=== PATIENT | male | born 1965 | race Caucasian/White ===

== ENCOUNTER 2017-02-01 06:06 | Day surgery (SDC) | payer OTHER ==
[~2017-02-01 06:06] MED LIST: Lactated Ringers 1,000 ML IV SCH
[2017-02-01] MEDS ORDERED: Ketamine HCl 50 MG/ML IJ ONE (06:07)
[2017-02-01] MEDS ORDERED: DIPRIVAN 200 MG/20 ML IV ONE (06:07)
[2017-02-01 08:18] VITALS: O2SAT 99
[2017-02-01 08:42] VITALS: BP 128/72; PULSE 77
--- NOTE | 2017-02-01 10:06 | OP ---
SURGERY DATE/TIME: 02/01/2017 0655 PREOPERATIVE DIAGNOSIS: Hepatocellular carcinoma of the liver. Search for possible primary site. POSTOPERATIVE DIAGNOSIS: Hepatocellular carcinoma of the liver. Search for possible primary site. PROCEDURES: 1) EGD. 2) Colonoscopy. SURGEON: Dr. Cordova. ANESTHESIA: MAC. Medications given by anesthesia department. HISTORY: The patient is a 51 year-old male with history of hepatitis C and alcoholism. The patient has been evaluated by physicians up in [place] and has received treatments with feeds into the two sites into his liver that they have found thus far. The patient is now here for evaluation for possible primary source of cancer. The patient was described the risks of the procedure including the risk of perforation, phlebitis, untoward reaction to medication, bleeding and missed lesions. The patient verbalized his understanding and desired to have the procedure performed. DESCRIPTION OF PROCEDURE: The patient was given the medications by the anesthesia department. The patient was placed in the left lateral decubitus position. A bite block was placed and the flexible Olympus gastroscope was used to intubate the oropharynx. The esophagus was entered with ease and appeared to be normal throughout is length. The stomach was entered where normal gastric rugal folds were seen and these distended nicely with insufflation of air. The scope was passed along the greater curvature of the stomach to the pylorus. The duodenum was inspected. The scope was withdrawn towards the stomach. Again, a retroflex view was obtained of the lesser curvature, fundus and cardia region of the stomach and these appeared to be normal. The scope was then removed from the patient who tolerated the procedure well. Next, a digital rectal examination was performed and revealed normal anal sphincter tone and no masses and normal prostate. The flexible Olympus pediatric colonoscope was used to intubate the rectum. A view of the colon was developed sequentially to the cecum. Upon insertion and withdrawal, including a retroflex view in the rectum, no mucosal lesions were encountered. The scope was removed from the patient who tolerated the procedure well and was sent back to OP recovery in good condition. The prep was noted to be fair.
== END 2017-02-01 08:35 | disposition home or self-care (01) ==
LOC: SDC 06:06
PROVIDERS: ATTEND Family Medicine
PROC: 0DJ08ZZ Inspection of Upper Intestinal Tract, Via Natural or Artificial Opening Endoscopic (ICD-10-PCS; principal; 2017-02-01)
PROC: 0DJD8ZZ Inspection of Lower Intestinal Tract, Via Natural or Artificial Opening Endoscopic (ICD-10-PCS; 2017-02-01)
DX: C22.0 Liver cell carcinoma (principal); F10.20 Alcohol dependence, uncomplicated; E11.9 Type 2 diabetes mellitus without complications; Z79.4 Long term (current) use of insulin; Z12.11 Encounter for screening for malignant neoplasm of colon
CPT/HCPCS: 00740; 00810; J2704

== ENCOUNTER 2017-03-01 21:07 | Emergency (ER) | payer OTHER ==
[2017-03-01] MEDS ORDERED: SUBLIMAZE 100 MCG/2 ML IV ONE (22:25)
[2017-03-01] MEDS ORDERED: Vistaril 50 MG/ML IM ONE ×2 (22:25→22:33)
[2017-03-01] MEDS ORDERED: Sodium Chloride 0.9% 1000 ML 1,000 ML IV SCH (22:30)
--- NOTE | 2017-03-01 22:30 | ERPHSYRPT ---
- History of Present Illness Time Seen by Provider: 03/01/17 22:16 Source: patient, family () Patient Subjective Stated Complaint: Pt reports feeling sick at home, with chills x 2 days. Reports feeling like he is unable to sleep because his brain "won't shut off". Pt reports pain in the right leg. Pt also reports tingling and sharp needle pains in the hands. Denies fever at home. Reports is concerned because he has liver cancer and has chemo beads in. Triage Nursing Assessment: Pt alert, oriented, answers all questions appropriately. Skin pink, warm, dry. resps non-labored. Pt ambulatory to tx room , steady gait noted. Physician History: CCl chills Hx: 51 y/o patient of [facility] oncology and Dr Rivera. He has hx of liver cancer s/ p bead chemo implant one month ago. He has had right thigh pain since this vascular procedure. He has chills for 2 days. No fever. Tonite after work he could not shut his mind down to rest, felt nervous, tingling in his fingers, pain in hands and right thigh. No swelling of the leg. No abd pain or vomiting. No diarrhea. No headache. No injury. [place] heart racing while he had his ear plugs in trying to sleep. Severity: moderate Allergies/Adverse Reactions: No Known Drug Allergies Allergy (Verified 03/01/17 22:24) Home Medications: Glyburide,Micronized [Glynase] 5 mg PO BID 06/01/13 [History] Metformin HCl 500 mg [Glucophage 500 MG] 1,000 mg PO BID 06/01/13 [History ] Amlodipine Besylate 10 mg [Norvasc 10 MG] 10 mg PO DAILY 01/28/17 [History] Hydrochlorothiazide 50 mg PO DAILY 01/28/17 [History] Ledipasvir/Sofosbuvir [Harvoni 90-400 mg Tablet] 1 each PO DAILY 01/28/17 [ History] Lisinopril [Zestril] 40 mg PO DAILY 01/28/17 [History] Potassium Chloride 10 Meq Tab* [Klor Con 10 MEQ] 10 meq PO DAILY 01/28/17 [ History] Sitagliptin Phosphate [Januvia] 100 mg PO DAILY 01/28/17 [History] Verapamil HCl [Verapamil Sr] 120 mg PO DAILY 01/28/17 [History] Hx Tetanus, Diphtheria Vaccination/Date Given: Yes Hx Influenza Vaccination/Date Given: No Hx Pneumococcal Vaccination/Date Given: No Immunizations Up to Date: Yes - Review of Systems Constitutional: Chills, Malaise, No Fever Eyes: No Vision Changes Ears, Nose, & Throat: No Symptoms Respiratory: No Cough, No Dyspnea Cardiac: No Chest Pain, No Syncope Abdominal/Gastrointestinal: No Abdominal Pain, No Nausea, No Vomiting, No Diarrhea Genitourinary Symptoms: No Dysuria Musculoskeletal: Joint Pain (hx RA), Myalgias, No Injury Skin: No Rash Neurological: Parasthesia (hands and finger tips), No Focal Weakness, No Headache All Other Systems: Reviewed and Negative - Past Medical History Pertinent Past Medical History: Yes Neurological History: No Pertinent History ENT History: No Pertinent History Cardiac History: Hypertension Respiratory History: No Pertinent History Endocrine Medical History: Diabetes Type II Musculoskeletal History: Degenerative Disk Disease, Fibromyalgia, Other GI Medical History: Hepatitis, Liver Cancer History: No Pertinent History Psycho-Social History: No Pertinent History Male Reproductive Disorders: No Pertinent History Other Medical History: Cracked disc and extreme back pain. 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, liver cancer - Past Surgical History Past Surgical History: Yes Neuro Surgical History: No Pertinent History Cardiac: No Pertinent History Respiratory: No Pertinent History Gastrointestinal: No Pertinent History Genitourinary: No Pertinent History Musculoskeletal: No Pertinent History Male Surgical History: Vasectomy, Other Other Surgical History: SX TO REMOVE BOIL FROM GROIN, chemo beads to liver - Social History Smoking Status: Current every day smoker How long have you smoked: 30 Exposure to second hand smoke: No Drug Use: none Patient Lives Alone: No - Nursing Vital Signs Nursing Vital Signs: Initial Vital Signs Temperature 97.8 F 03/01/17 22:18 Pulse Rate 96 H 03/01/17 22:18 Respiratory Rate 16 03/01/17 22:18 Blood Pressure 137/72 03/01/17 22:18 O2 Sat by Pulse Oximetry 97 03/01/17 22:18 Pain Scale Pain Intensity 8 - Physical Exam General Appearance: alert Eye Exam: PERRL/EOMI Ears, Nose, Throat Exam: normal ENT inspection, moist mucous membranes Neck Exam: normal inspection, non-tender, supple Respiratory Exam: normal breath sounds, lungs clear Cardiovascular Exam: regular rate/rhythm, No murmur, No friction rub, No gallop Gastrointestinal/Abdomen Exam: soft, No tenderness, No distention, No mass, No guarding Male Genitalia Exam: normal genitalia Back Exam: normal inspection, No CVA tenderness Extremity Exam: normal inspection, normal range of motion, pedal edema (trace bilateral pedal edema, no calf tenderness, no redness, pulses intact) Neurologic Exam: alert, oriented x 3, cooperative, sensation nml, No motor deficits Skin Exam: warm, dry, No rash SpO2 Interpretation: normal SpO2: 97 Oxygen Delivery: Room Air - Course Nursing assessment & vital signs reviewed: Yes EKG Interpreted by Me: RATE (80), Sinus Rhythm, NORMAL AXIS, NORMAL INTERVALS ( QTc 475), Q-wave (inferior), NORMAL ST-T Ordered Tests: Active Orders 24 hr Category Date Time Status Hand Tacker STAT Care 03/01/17 22:26 Active Clean Catch Urine Specimen STAT Care 03/01/17 22:25 Active EKG-ER Only STAT Care 03/01/17 22:25 Active IV Insertion STAT Care 03/01/17 22:25 Active CBC W DIFF Stat Lab 03/01/17 22:40 Completed CK-Creatinine Phosphokinase Stat Lab 03/01/17 22:40 Completed CMP Stat Lab 03/01/17 22:40 Completed LIPASE Stat Lab 03/01/17 22:40 Completed Lactic Acid Stat Lab 03/01/17 22:25 Completed MAGNESIUM Stat Lab 03/01/17 22:40 Completed PROTIME WITH INR Stat Lab 03/01/17 22:40 Completed UA W/RFX UR CULTURE Stat Lab 03/01/17 22:50 Completed Urine Triage Profile Stat Lab 03/01/17 22:50 Completed Medication Summary Generic Name Dose Route Start Last Admin Trade Name Freq PRN Reason Stop Dose Admin Sodium Chloride 1,000 mls @ 100 mls/hr 03/01/17 22:30 03/01/17 22:36 Sodium Chloride 0.9% 1000 Ml IV 03/31/17 22:29 100 mls/hr .Q10H ANUP Administration Discontinued Medications Generic Name Dose Route Start Last Admin Trade Name Freq PRN Reason Stop Dose Admin Fentanyl Citrate 50 mcg 03/01/17 22:25 03/01/17 22:35 Sublimaze 100 Mcg/2 Ml IV 03/01/17 22:26 50 mcg STAT ONE Administration Fentanyl Citrate Confirm 03/01/17 22:33 Sublimaze 100 Mcg/2 Ml Administered 03/01/17 22:34 Dose 100 mcg .ROUTE .STK-MED ONE Hydroxyzine HCl 50 mg 03/01/17 22:25 03/01/17 22:36 Vistaril 50 Mg/Ml IM 03/01/17 22:26 50 mg STAT ONE Administration Hydroxyzine HCl Confirm 03/01/17 22:33 Vistaril 50 Mg/Ml Administered 03/01/17 22:34 Dose 50 mg IM .STK-MED ONE Lab/Rad Data: Laboratory Result Diagrams 03/01/17 22:40 03/01/17 22:40 Laboratory Results 03/01/17 03/01/17 03/01/17 Range/Units 22:50 22:50 22:40 WBC (4.0-10.5) K/mm3 RBC (4.1-5.6) M/mm3 Hgb (12.5-18.0) gm/dl Hct (42-50) % MCV (78-100) fl MCH (26-32) pg MCHC (32-36) g/dl RDW (11.5-14.0) % Plt Count (150-450) K/mm3 MPV (6-9.5) fl Gran % (36.0-66.0) % Lymphocytes % (24.0-44.0) % Monocytes % (0.0-12.0) % Eosinophils % (0.00-5.0) % Basophils % (0.0-0.4) % Basophils # (0-0.4) INR (0.8-3.0) Sodium (136-145) mEq/L Potassium (3.5-5.1) mEq/L Chloride (98-107) mEq/L Carbon Dioxide (21-32) mEq/L Anion Gap (5-15) MEQ/L BUN (9-20) mg/dL Creatinine (0.55-1.30) mg/dl Estimated GFR ML/MIN Glucose (70-110) MG/DL Lactic Acid (0.4-2.0) Calcium (8.5-10.1) mg/dL Magnesium 1.8 (1.8-2.4) mg/dL Total Bilirubin (0.2-1.0) mg/dL AST (15-37) U/L ALT (12-78) U/L Alkaline Phosphatase (46-116) U/L Creatine Kinase 87 (39-308) U/L Serum Total Protein (6.4-8.2) gm/dL Albumin (3.4-5.0) g/dL Lipase (73-393) U/L Ur Collection Type CCMS Urine Color YELLOW (YELLOW) Urine Appearance CLEAR (CLEAR) Urine pH 7.0 (5-6) Ur Specific [place] 1.010 (1.005-1.025) Urine Protein NEGATIVE (Negative) Urine Ketones NEGATIVE (NEGATIVE) Urine Blood NEGATIVE (0-5) Luiz/ul Urine Nitrite NEGATIVE (NEGATIVE) Urine Bilirubin NEGATIVE (NEGATIVE) Urine Urobilinogen NORMAL (0-1) mg/dL Ur Leukocyte Esterase NEGATIVE (NEGATIVE) Urine Culture Reflexed NO (NO) Urine Glucose NEGATIVE (NEGATIVE) mg/dL Urine Opiates Level NEG. (NEGATIVE) Ur Methadone NEG. (NEGATIVE) Urine Barbiturates NEG. (NEGATIVE) Ur Phencyclidine (PCP) NEG. (NEGATIVE) Urine Amphetamine NEG. (NEGATIVE) U Benzodiazepine Level POS. (NEGATIVE) Urine Cocaine NEG. (NEGATIVE) Urine Marijuana (THC) NEG. (NEGATIVE) Specimen Received 03-01-17 2300 03/01/17 03/01/17 03/01/17 Range/Units 22:40 22:40 22:40 WBC 12.0 H (4.0-10.5) K/mm3 RBC 4.02 L (4.1-5.6) M/mm3 Hgb 12.5 (12.5-18.0) gm/dl Hct 36.2 L (42-50) % MCV 90.0 (78-100) fl MCH 31.0 (26-32) pg MCHC 34.5 (32-36) g/dl RDW 12.1 (11.5-14.0) % Plt Count 123 L (150-450) K/mm3 MPV 10.1 H (6-9.5) fl Gran % 56.4 (36.0-66.0) % Lymphocytes % 32.1 (24.0-44.0) % Monocytes % 9.4 (0.0-12.0) % Eosinophils % 1.8 (0.00-5.0) % Basophils % 0.3 (0.0-0.4) % Basophils # 0.04 (0-0.4) INR 1.16 (0.8-3.0) Sodium 137 (136-145) mEq/L Potassium 3.8 (3.5-5.1) mEq/L Chloride 102 (98-107) mEq/L Carbon Dioxide 21.8 (21-32) mEq/L Anion Gap 16.9 H (5-15) MEQ/L BUN 15 (9-20) mg/dL Creatinine 0.94 (0.55-1.30) mg/dl Estimated GFR > 60 ML/MIN Glucose 85 (70-110) MG/DL Lactic Acid (0.4-2.0) Calcium 9.5 (8.5-10.1) mg/dL Magnesium (1.8-2.4) mg/dL Total Bilirubin 0.40 (0.2-1.0) mg/dL AST 27 (15-37) U/L ALT 37 (12-78) U/L Alkaline Phosphatase 147 H (46-116) U/L Creatine Kinase (39-308) U/L Serum Total Protein 8.4 H (6.4-8.2) gm/dL Albumin 3.7 (3.4-5.0) g/dL Lipase 240 (73-393) U/L Ur Collection Type Urine Color (YELLOW) Urine Appearance (CLEAR) Urine pH (5-6) Ur Specific [place] (1.005-1.025) Urine Protein (Negative) Urine Ketones (NEGATIVE) Urine Blood (0-5) Luiz/ul Urine Nitrite (NEGATIVE) Urine Bilirubin (NEGATIVE) Urine Urobilinogen (0-1) mg/dL Ur Leukocyte Esterase (NEGATIVE) Urine Culture Reflexed (NO) Urine Glucose (NEGATIVE) mg/dL Urine Opiates Level (NEGATIVE) Ur Methadone (NEGATIVE) Urine Barbiturates (NEGATIVE) Ur Phencyclidine (PCP) (NEGATIVE) Urine Amphetamine (NEGATIVE) U Benzodiazepine Level (NEGATIVE) Urine Cocaine (NEGATIVE) Urine Marijuana (THC) (NEGATIVE) Specimen Received 03/01/17 Range/Units 22:25 WBC (4.0-10.5) K/mm3 RBC (4.1-5.6) M/mm3 Hgb (12.5-18.0) gm/dl Hct (42-50) % MCV (78-100) fl MCH (26-32) pg MCHC (32-36) g/dl RDW (11.5-14.0) % Plt Count (150-450) K/mm3 MPV (6-9.5) fl Gran % (36.0-66.0) % Lymphocytes % (24.0-44.0) % Monocytes % (0.0-12.0) % Eosinophils % (0.00-5.0) % Basophils % (0.0-0.4) % Basophils # (0-0.4) INR (0.8-3.0) Sodium (136-145) mEq/L Potassium (3.5-5.1) mEq/L Chloride (98-107) mEq/L Carbon Dioxide (21-32) mEq/L Anion Gap (5-15) MEQ/L BUN (9-20) mg/dL Creatinine (0.55-1.30) mg/dl Estimated GFR ML/MIN Glucose (70-110) MG/DL Lactic Acid 1.2 (0.4-2.0) Calcium (8.5-10.1) mg/dL Magnesium (1.8-2.4) mg/dL Total Bilirubin (0.2-1.0) mg/dL AST (15-37) U/L ALT (12-78) U/L Alkaline Phosphatase (46-116) U/L Creatine Kinase (39-308) U/L Serum Total Protein (6.4-8.2) gm/dL Albumin (3.4-5.0) g/dL Lipase (73-393) U/L Ur Collection Type Urine Color (YELLOW) Urine Appearance (CLEAR) Urine pH (5-6) Ur Specific [place] (1.005-1.025) Urine Protein (Negative) Urine Ketones (NEGATIVE) Urine Blood (0-5) Luiz/ul Urine Nitrite (NEGATIVE) Urine Bilirubin (NEGATIVE) Urine Urobilinogen (0-1) mg/dL Ur Leukocyte Esterase (NEGATIVE) Urine Culture Reflexed (NO) Urine Glucose (NEGATIVE) mg/dL Urine Opiates Level (NEGATIVE) Ur Methadone (NEGATIVE) Urine Barbiturates (NEGATIVE) Ur Phencyclidine (PCP) (NEGATIVE) Urine Amphetamine (NEGATIVE) U Benzodiazepine Level (NEGATIVE) Urine Cocaine (NEGATIVE) Urine Marijuana (THC) (NEGATIVE) Specimen Received - Progress Progress Note: 03/01/17 23:54 No sign of DVT. Reviewed labs with pt and . They will contact Dr Barnes in AM for follow up. Labs reassuring. No fever. He has rested after meds here. Counseled pt/family regarding: lab results, diagnosis, need for follow-up - Departure Time of Disposition: 23:54 Departure Disposition: Home Clinical Impression: Chills, Anxiety, Liver cancer Condition: Stable Critical Care Time: No Referrals: AMOR RIVERA [Primary Care Provider] - KHALIF TAYLOR MD [NON-STAFF PHY W/O PRIVILEGES] - Instructions: Liver Cancer Additional Instructions: No driving tonite and stay with family. Contact Dr Taylor in AM. Report any fever right away.
[2017-03-01] MEDS ORDERED: SUBLIMAZE 100 MCG/2 ML ONE (22:33)
[2017-03-01] MEDS ORDERED: Sodium Chloride 0.9% 1000 ML 1,000 ML ONE (22:33)
[2017-03-01 22:49] LABS: BASOPHIL % 0.3 % (0.0-0.4); Eosinophil % 1.8 % (0.00-5.0); Granulocytes % 56.4 % (36.0-66.0); Lymphocytes % 32.1 % (24.0-44.0); Mean Platelet Volume 10.1 fl (6-9.5); Monocytes % 9.4 % (0.0-12.0); Platelet Count 123 K/mm3 (150-450); Red Blood Count 4.02 M/mm3 (4.1-5.6); Red Cell Distribution Width 12.1 % (11.5-14.0)
[2017-03-01 23:06] LABS: INR 1.16 (0.8-3.0); PROTIME 12.9 SECONDS (8.83-12.87)
[2017-03-01 23:08] LABS: Collection Type CCMS
[2017-03-01 23:09] LABS: ADD URINE CULTURE? NO (NO); Bilirubin NEGATIVE (NEGATIVE); Blood NEGATIVE Ery/ul (0-5); COMPLETE URINE MICROSCOPIC? NO; Glucose NEGATIVE (NEGATIVE); Leukocyte Esterase NEGATIVE (NEGATIVE)
[2017-03-01 23:12] LABS: ALBUMIN 3.7 g/dL (3.4-5.0); ALKALINE PHOSPHATASE 147 U/L (46-116); ANION GAP 16.9 MEQ/L (5-15); BLOOD UREA NITROGEN 15 mg/dL (9-20); CHLORIDE 102 mEq/L (98-107); Carbon Dioxide 21.8 mEq/L (21-32); Glucose 85 MG/DL (70-110); LIPASE 240 U/L (73-393); Potassium 3.8 mEq/L (3.5-5.1); SGOT/AST 27 U/L (15-37); SGPT/ALT 37 U/L (12-78); SODIUM 137 mEq/L (136-145); Total Protein 8.4 gm/dL (6.4-8.2)
[2017-03-01 23:14] LABS: MAGNESIUM 1.8 mg/dL (1.8-2.4)
[2017-03-02 01:04] VITALS: BP 124/66; PULSE 82; O2SAT 98
== END 2017-03-02 00:24 | disposition home or self-care (01) ==
LOC: ED 21:07
DX: R68.83 Chills (without fever) (principal); F41.9 Anxiety disorder, unspecified; C22.8 Malignant neoplasm of liver, primary, unspecified as to type; Z79.84 Long term (current) use of oral hypoglycemic drugs; Z79.899 Other long term (current) drug therapy; I10 Essential (primary) hypertension; E11.9 Type 2 diabetes mellitus without complications
CPT/HCPCS: 36000; 36415; 80053; 80307; 81002; 82550; 83605; 83690; 83735; 85025; 85610; 93005; 93041; 96360; 96361; 96372; 96374; 99284; J3010; J3410

== ENCOUNTER 2017-05-22 12:54 | Emergency (ER) | payer OTHER ==
[2017-05-22 13:13] VITALS: BP 164/93; O2SAT 100
--- NOTE | 2017-05-22 13:26 | ERPHSYRPT ---
- History of Present Illness Time Seen by Provider: 05/22/17 13:25 Source: patient, family Exam Limitations: no limitations Patient Subjective Stated Complaint: Pt states "I had a heart cath on 2017 and the access site is swollen and painful." "I had chemo on March 16 and I am supposed to have another round of chemo this upcoming tuesday." Triage Nursing Assessment: Pt alert and oriented X 3, skin pwd. Pt ambulates without difficulty, able to speak in clear full sentences. Physician History: The patient is a 51-year-old male who is on the liver transplant waiting list complains of having a heart catheterization performed to his right groin on and now for the last 2 days has developed an increasingly tender and red hard area in his right groin. He had a fever 2 days ago. His called the transplant team and the cardiac catheter team and he was told to come to the emergency room because he might have an infection. He has liver cancer and is scheduled for another chemotherapy in 5 days. He denies shortness of breath, nausea. His past medical history significant for liver cancer, diabetes, and hypertension. He's had several MRSA infections in the past. Timing/Duration: day(s) (2) Quality: painful Severity: moderate Location: other (right groin) Possible Causes: other (IV cath) Allergies/Adverse Reactions: No Known Drug Allergies Allergy (Verified 03/01/17 22:24) Home Medications: Glyburide,Micronized [Glynase] 5 mg PO BID 06/01/13 [History] Metformin HCl 500 mg [Glucophage 500 MG] 1,000 mg PO BID 06/01/13 [History ] Amlodipine Besylate 10 mg [Norvasc 10 MG] 10 mg PO DAILY 01/28/17 [History] Hydrochlorothiazide 50 mg PO DAILY 01/28/17 [History] Lisinopril [Zestril] 40 mg PO DAILY 01/28/17 [History] Potassium Chloride 10 Meq Tab* [Klor Con 10 MEQ] 10 meq PO DAILY 01/28/17 [ History] Sitagliptin Phosphate [Januvia] 100 mg PO DAILY 01/28/17 [History] Verapamil HCl [Verapamil Sr] 120 mg PO DAILY 01/28/17 [History] Hx Tetanus, Diphtheria Vaccination/Date Given: Yes Hx Influenza Vaccination/Date Given: Yes Hx Pneumococcal Vaccination/Date Given: No Immunizations Up to Date: Yes - Review of Systems Constitutional: Fever, Chills Eyes: No Symptoms Ears, Nose, & Throat: No Symptoms Respiratory: No Cough, No Dyspnea Cardiac: No Chest Pain, No Edema, No Syncope Abdominal/Gastrointestinal: No Abdominal Pain, No Nausea, No Vomiting, No Diarrhea Genitourinary Symptoms: No Dysuria Musculoskeletal: No Back Pain, No Neck Pain Skin: No Rash Neurological: No Dizziness, No Focal Weakness, No Sensory Changes Psychological: No Symptoms Endocrine: No Symptoms Hematologic/Lymphatic: No Symptoms Immunological/Allergic: No Symptoms All Other Systems: Reviewed and Negative - Past Medical History Pertinent Past Medical History: Yes Neurological History: No Pertinent History ENT History: No Pertinent History Cardiac History: Hypertension Respiratory History: No Pertinent History Endocrine Medical History: Diabetes Type II Musculoskeletal History: Degenerative Disk Disease, Fibromyalgia, Other GI Medical History: Hepatitis, Liver Cancer History: No Pertinent History Psycho-Social History: No Pertinent History Male Reproductive Disorders: No Pertinent History Other Medical History: Cracked disc and extreme back pain. MRSA to leg, liver cancer - Past Surgical History Past Surgical History: Yes Neuro Surgical History: No Pertinent History Cardiac: No Pertinent History Respiratory: No Pertinent History Gastrointestinal: No Pertinent History Genitourinary: No Pertinent History Musculoskeletal: No Pertinent History Male Surgical History: Vasectomy, Other Other Surgical History: SX TO REMOVE BOIL FROM GROIN, chemo beads to liver - Social History Smoking Status: Current every day smoker How long have you smoked: 30 years Exposure to second hand smoke: Yes Drug Use: none Patient Lives Alone: No - Nursing Vital Signs Nursing Vital Signs: Initial Vital Signs Temperature 97.8 F 05/22/17 13:05 Pulse Rate 90 05/22/17 13:05 Respiratory Rate 16 05/22/17 13:05 Blood Pressure 164/93 05/22/17 13:05 O2 Sat by Pulse Oximetry 100 05/22/17 13:05 Pain Scale Pain Intensity 8 - Physical Exam General Appearance: no apparent distress, alert Eye Exam: PERRL/EOMI, eyes nml inspection Ears, Nose, Throat Exam: normal ENT inspection, pharynx normal, moist mucous membranes Neck Exam: normal inspection, non-tender, supple, full range of motion Respiratory Exam: normal breath sounds, lungs clear, No respiratory distress Cardiovascular Exam: regular rate/rhythm, normal heart sounds Gastrointestinal/Abdomen Exam: soft, mass, No tenderness Rectal Exam: not done Back Exam: normal inspection, normal range of motion, No CVA tenderness, No vertebral tenderness Extremity Exam: normal inspection, normal range of motion Neurologic Exam: alert, oriented x 3, cooperative, normal mood/affect, sensation nml, No motor deficits Skin Exam: rash (tenderness and rash with hard indurated mass in right groin, no drainage) SpO2: 100 Oxygen Delivery: Room Air Ordered Tests: Active Orders 24 hr Category Date Time Status IV Insertion STAT Care 05/22/17 13:45 Active BLOOD CULTURE Stat Lab 05/22/17 14:15 Received CBC W DIFF Stat Lab 05/22/17 13:22 Completed CMP Stat Lab 05/22/17 13:22 Completed Lactic Acid Stat Lab 05/22/17 13:45 Completed Medication Summary Discontinued Medications Generic Name Dose Route Start Last Admin Trade Name Freq PRN Reason Stop Dose Admin Clindamycin HCl/Dextrose 900 mg in 50 mls @ 100 mls/hr 05/22/17 13:46 14:01 Clindamycin-D5w 900 Mg/50 Ml IV 05/22/17 14:15 100 mls/hr STAT STA Administration Sodium Chloride 1,000 mls @ 999 mls/hr 05/22/17 13:45 05/22/17 13:58 Sodium Chloride 0.9% 1000 Ml IV 05/22/17 14:45 999 mls/hr .Q1H1M STA Administration Clindamycin HCl/Dextrose Confirm 05/22/17 13:56 Clindamycin-D5w 900 Mg/50 Ml Administered 05/22/17 13:57 Dose 900 mg in 50 mls @ ud IV .STK-MED ONE Sodium Chloride Confirm 05/22/17 13:56 Sodium Chloride 0.9% 1000 Ml Administered 05/22/17 13:57 Dose 1,000 mls @ ud .ROUTE .STK-MED ONE Morphine Sulfate 4 mg 05/22/17 13:45 05/22/17 14:00 Morphine Sulfate 4 Mg Inj IV 05/22/17 13:46 4 mg STAT ONE Administration Morphine Sulfate Confirm 05/22/17 13:56 Morphine Sulfate 4 Mg Inj Administered 05/22/17 13:57 Dose 4 mg .ROUTE .STK-MED ONE Ondansetron HCl 4 mg 05/22/17 13:45 05/22/17 13:59 Zofran 4 Mg/2 Ml Vial IV 05/22/17 13:46 4 mg STAT ONE Administration Ondansetron HCl Confirm 05/22/17 13:55 Zofran 4 Mg/2 Ml Vial Administered 05/22/17 13:56 Dose 4 mg .ROUTE .STK-MED ONE Lab/Rad Data: Laboratory Result Diagrams 05/22/17 13:22 05/22/17 13:22 Laboratory Results 05/22/17 05/22/17 05/22/17 Range/Units 13:45 13:22 13:22 WBC 12.1 H (4.0-10.5) K/mm3 RBC 3.82 L (4.1-5.6) M/mm3 Hgb 11.5 L (12.5-18.0) gm/dl Hct 34.2 L (42-50) % MCV 89.5 (78-100) fl MCH 30.1 (26-32) pg MCHC 33.6 (32-36) g/dl RDW 12.4 (11.5-14.0) % Plt Count 150 (150-450) K/mm3 MPV 9.8 H (6-9.5) fl Gran % 63.5 (36.0-66.0) % Lymphocytes % 25.4 (24.0-44.0) % Monocytes % 9.2 (0.0-12.0) % Eosinophils % 1.7 (0.00-5.0) % Basophils % 0.2 (0.0-0.4) % Basophils # 0.03 (0-0.4) Sodium 136 (136-145) mEq/L Potassium 3.8 (3.5-5.1) mEq/L Chloride 100 (98-107) mEq/L Carbon Dioxide 24.6 (21-32) mEq/L Anion Gap 15.2 H (5-15) MEQ/L BUN 14 (9-20) mg/dL Creatinine 1.11 (0.55-1.30) mg/dl Estimated GFR > 60 ML/MIN Glucose 151 H (70-110) MG/DL Lactic Acid 1.5 (0.4-2.0) Calcium 8.6 (8.5-10.1) mg/dL Total Bilirubin 0.50 (0.2-1.0) mg/dL AST 15 (15-37) U/L ALT 20 (12-78) U/L Alkaline Phosphatase 126 H (46-116) U/L Serum Total Protein 8.6 H (6.4-8.2) gm/dL Albumin 3.9 (3.4-5.0) g/dL - Progress Progress: improved Counseled pt/family regarding: lab results, diagnosis, need for follow-up - Departure Time of Disposition: 15:33 Departure Disposition: Home Clinical Impression: Cellulitis and abscess of right lower extremity Condition: Stable Critical Care Time: No Referrals: AMOR RIVERA [Primary Care Provider] - Additional Instructions: You have cellulitis and abscess in the right groin at the site of the cardiac catheterization. You were given clindamycin 900 mg and fluids by IV in the ER. Take clindamycin 300 mg 4 times a day for 10 days. Call your transplant team tomorrow morning for further instructions. Prescriptions: Clindamycin HCl 1 cap PO QID #40 capsule
[2017-05-22] MEDS ORDERED: Zofran 4 MG/2 ML VIAL IV ONE (13:45)
[2017-05-22] MEDS ORDERED: Sodium Chloride 0.9% 1000 ML 1,000 ML IV STA (13:45)
[2017-05-22] MEDS ORDERED: MORPHINE SULFATE 4 MG INJ IV ONE (13:45)
[2017-05-22] MEDS ORDERED: CLINDAMYCIN-D5W 900 MG/50 ML*** 900 MG/50 ML BAG IV STA (13:46)
[2017-05-22] MEDS ORDERED: Zofran 4 MG/2 ML VIAL ONE (13:55)
[2017-05-22] MEDS ORDERED: MORPHINE SULFATE 4 MG INJ ONE (13:56)
[2017-05-22] MEDS ORDERED: Sodium Chloride 0.9% 1000 ML 1,000 ML ONE (13:56)
[2017-05-22] MEDS ORDERED: CLINDAMYCIN-D5W 900 MG/50 ML*** 900 MG/50 ML BAG IV ONE (13:56)
[2017-05-22 13:58] VITALS: PULSE 84
[2017-05-22 14:20] LABS: BASOPHIL % 0.2 % (0.0-0.4); Basophil (Absolute #) 0.03 (0-0.4); Eosinophil % 1.7 % (0.00-5.0); Eosinophil (Absolute #) 0.21 (0-0.5); Granulocyte Absolute (ANC) 7.68 (1.4-6.9); Granulocytes % 63.5 % (36.0-66.0); Hematocrit 34.2 % (42-50); Hemoglobin 11.5 gm/dl (12.5-18.0); Lymphocyte (Absolute #) 3.07 (1.0-4.6); Lymphocytes % 25.4 % (24.0-44.0); Mean Cell Volume 89.5 fl (78-100); Mean Corpuscular Hemoglobin 30.1 pg (26-32); Mean Corpuscular Hgb Concent. 33.6 g/dl (32-36); Mean Platelet Volume 9.8 fl (6-9.5); Monocyte (Absolute #) 1.12 (0.0-1.3); Monocytes % 9.2 % (0.0-12.0); Platelet Count 150 K/mm3 (150-450); Red Blood Count 3.82 M/mm3 (4.1-5.6); Red Cell Distribution Width 12.4 % (11.5-14.0); White Blood Count 12.1 K/mm3 (4.0-10.5)
[2017-05-22 14:43] LABS: ALBUMIN 3.9 g/dL (3.4-5.0); ALKALINE PHOSPHATASE 126 U/L (46-116); ANION GAP 15.2 MEQ/L (5-15); BLOOD UREA NITROGEN 14 mg/dL (9-20); CHLORIDE 100 mEq/L (98-107); Calcium 8.6 mg/dL (8.5-10.1); Carbon Dioxide 24.6 mEq/L (21-32); Creatinine 1 1.11 mg/dl (0.55-1.30); EST GLOMERULAR FILTRATION RATE > 60 ML/MIN; Glucose 151 MG/DL (70-110); Potassium 3.8 mEq/L (3.5-5.1); SGOT/AST 15 U/L (15-37); SGPT/ALT 20 U/L (12-78); SODIUM 136 mEq/L (136-145); Total Protein 8.6 gm/dL (6.4-8.2)
== END 2017-05-22 15:46 | disposition home or self-care (01) ==
LOC: ED 12:54
DX: L03.115 Cellulitis of right lower limb (principal); C22.8 Malignant neoplasm of liver, primary, unspecified as to type; Z79.899 Other long term (current) drug therapy; E11.9 Type 2 diabetes mellitus without complications; I10 Essential (primary) hypertension
CPT/HCPCS: 36000; 36415; 80053; 83605; 85025; 87040; 96360; 96365; 96374; 96375; 99284; J2270; J2405

== ENCOUNTER 2018-10-26 16:15 | Emergency (ER) | payer OTHER ==
[2018-10-26] MEDS ORDERED: Zofran 4 MG/2 ML VIAL IV ONE (17:08)
[2018-10-26] MEDS ORDERED: SUBLIMAZE 100 MCG/2 ML IV ONE (17:08)
--- NOTE | 2018-10-26 17:08 | ERPHSYRPT ---
- History of Present Illness Time Seen by Provider: 10/26/18 16:45 Historian: patient Exam Limitations: clinical condition Patient Subjective Stated Complaint: Pt states "I had a liver transplant [address] Lee at [facility] and a couple of months ago I got a hernia and it is getting bigger. I called Raquel the appeals coordinator and they said to come to the ER and get a CT." Triage Nursing Assessment: Pt presented to the front alert and oriented X 3, skin pwd. Pt ambulates with an upright steady gait, able to speak in clear full sentences. Pt has swelling noted to left upper abdomen, bowel sounds heard in all quadrants. Physician History: PATIENT WITH A HISTORY OF HYPERTENSION, LIVER CARCINOMA UNDERWENT LIVER TRANSPLANT 7 MONTHS AGO AND DEVELOPED INCISIONAL WOUND HERNIA X 2 MONTH. STATES HERNIA HAS INCREASED IN SIZE OVER PAST 2-3 WEEKS. ASSOCIATED WITH PAIN. DENIES FEVER, NAUSEA OR EMESIS. Timing/Duration: week(s) Activities at Onset: none Quality: cramping Abdominal Pain Onset Location: epigastric Pain Radiation: no radiation Severity of Pain-Max: mild Severity of Pain-Current: mild Modifying Factors: Improves With: exercise Associated Symptoms: denies symptoms Allergies/Adverse Reactions: No Known Drug Allergies Allergy (Verified 03/01/17 22:24) Home Medications: Glyburide,Micronized [Glynase] 5 mg PO BID 06/01/13 [History] Metformin HCl 500 mg [Glucophage 500 MG] 1,000 mg PO BID 06/01/13 [History ] Amlodipine Besylate 10 mg [Norvasc 10 MG] 10 mg PO DAILY 01/28/17 [History] Magnesium Oxide/Magnesium [va-Jtmn-Cgxdcdx Tablet] 133 mg PO DAILY 10/26/18 [ History] Metoprolol Succinate [Toprol Xl] 25 mg PO DAILY 10/26/18 [History] Mycophenolate Mofetil 500 mg PO DAILY 10/26/18 [History] Oxycodone HCl 10 mg PO DAILY 10/26/18 [History] Tacrolimus 1 mg PO DAILY 10/26/18 [History] Hx Tetanus, Diphtheria Vaccination/Date Given: Yes Hx Influenza Vaccination/Date Given: Yes Hx Pneumococcal Vaccination/Date Given: Yes Immunizations Up to Date: Yes - Review of Systems Constitutional: No Fever, No Chills Eyes: No Symptoms Ears, Nose, & Throat: No Symptoms Respiratory: No Symptoms, No Cough, No Dyspnea Cardiac: No Symptoms, No Chest Pain, No Edema, No Syncope Abdominal/Gastrointestinal: No Abdominal Pain, No Nausea, No Vomiting, No Diarrhea Genitourinary Symptoms: No Symptoms, No Dysuria Musculoskeletal: No Symptoms, No Back Pain, No Neck Pain Skin: No Rash Neurological: No Dizziness, No Focal Weakness, No Sensory Changes Psychological: No Symptoms Endocrine: No Symptoms All Other Systems: Reviewed and Negative - Past Medical History Pertinent Past Medical History: Yes Neurological History: No Pertinent History ENT History: No Pertinent History Cardiac History: Hypertension Respiratory History: No Pertinent History Endocrine Medical History: Diabetes Type II Musculoskeletal History: Degenerative Disk Disease, Fibromyalgia, Other GI Medical History: Hepatitis, Liver Cancer History: No Pertinent History Psycho-Social History: No Pertinent History Male Reproductive Disorders: No Pertinent History Other Medical History: Cracked disc and extreme back pain. 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 liver transplant - Social History Smoking Status: Current every day smoker How long have you smoked: years Exposure to second hand smoke: Yes Drug Use: none Patient Lives Alone: No - Nursing Vital Signs Nursing Vital Signs: Initial Vital Signs Temperature 98.0 F 10/26/18 16:20 Pulse Rate 80 10/26/18 16:20 Respiratory Rate 20 10/26/18 16:20 Blood Pressure 126/77 10/26/18 16:20 O2 Sat by Pulse Oximetry 97 10/26/18 16:20 Pain Scale Pain Intensity 4 - Physical Exam General Appearance: no apparent distress Eye Exam: PERRL/EOMI Ears, Nose, Throat Exam: normal ENT inspection Neck Exam: normal inspection Respiratory Exam: normal breath sounds Cardiovascular Exam: regular rate/rhythm Gastrointestinal/Abdomen Exam: soft, normal bowel sounds, hernia (THERE IS A LARGE SUPRAUMBILICAL HERNIA 8CM X 13CM UPON TENSING ABDOMINAL WALL, REDUCES SPONTANEOUSLY) SpO2: 97 - CT Exams Abdomen/Pelvis CT Interpretation: Discussed w/radiologist, Tele-radiologist Report (THERE ARE 2 LEFT RENAL CYST, LARGEST 3.3CM, NONOBSTRUCTING LEFT RENAL MICROCALCULUS) Ordered Tests: Active Orders 24 hr Category Date Time Status ABDOMEN AND PELVIS W/0 CONTRAS [CT] Stat Exams 10/26/18 17:08 Taken BMP Stat Lab 10/26/18 17:45 Completed CBC W DIFF Stat Lab 10/26/18 17:45 Completed Medication Summary Generic Name Dose Route Start Last Admin Trade Name Freq PRN Reason Stop Dose Admin Sodium Chloride 1,000 mls @ 200 mls/hr 10/26/18 17:15 10/26/18 17:51 Sodium Chloride 0.9% 1000 Ml IV 11/25/18 17:14 200 mls/hr .Q5H ANUP Administration Discontinued Medications Generic Name Dose Route Start Last Admin Trade Name Freq PRN Reason Stop Dose Admin Fentanyl Citrate 50 mcg 10/26/18 17:08 10/26/18 17:50 Sublimaze 100 Mcg/2 Ml IV 10/26/18 17:09 50 mcg STAT ONE Administration Fentanyl Citrate Confirm 10/26/18 17:49 Sublimaze 100 Mcg/2 Ml Administered 10/26/18 17:50 Dose 100 mcg .ROUTE .STK-MED ONE Ondansetron HCl 4 mg 10/26/18 17:08 10/26/18 17:50 Zofran 4 Mg/2 Ml Vial IV 10/26/18 17:09 4 mg STAT ONE Administration Ondansetron HCl Confirm 10/26/18 17:49 Zofran 4 Mg/2 Ml Vial Administered 10/26/18 17:50 Dose 4 mg .ROUTE .STK-MED ONE Lab/Rad Data: Laboratory Result Diagrams 10/26/18 17:45 10/26/18 17:45 Laboratory Results 10/26/18 10/26/18 Range/Units 17:45 17:45 WBC 8.0 (4.0-10.5) K/mm3 RBC 4.46 (4.1-5.6) M/mm3 Hgb 13.2 (12.5-18.0) gm/dl Hct 38.4 L (42-50) % MCV 86.1 (78-100) fl MCH 29.6 (26-32) pg MCHC 34.4 (32-36) g/dl RDW 13.6 (11.5-14.0) % Plt Count 169 (150-450) K/mm3 MPV 10.1 H (6-9.5) fl Gran % 74.1 H (36.0-66.0) % Eos # (Auto) 0.13 (0-0.5) Absolute Lymphs (auto) 1.16 (1.0-4.6) Absolute Monos (auto) 0.74 (0.0-1.3) Lymphocytes % 14.6 L (24.0-44.0) % Monocytes % 9.3 (0.0-12.0) % Eosinophils % 1.6 (0.00-5.0) % Basophils % 0.4 (0.0-0.4) % Absolute Granulocytes 5.89 (1.4-6.9) Basophils # 0.03 (0-0.4) Sodium 139 (137-145) mmol/L Potassium 4.0 (3.5-5.1) mmol/L Chloride 107 (98-107) mmol/L Carbon Dioxide 26 (22-30) mmol/L Anion Gap 10.4 (5-15) MEQ/L BUN 15 (9-20) mg/dL Creatinine 1.53 H (0.66-1.25) mg/dL Estimated GFR 51.1 ML/MIN Glucose 100 (74-106) mg/dL Calcium 9.1 (8.4-10.2) mg/dL - Progress Progress Note: 10/26/18 19:49 IV NORMAL SALINE 100ML/HR, ZOFRAN 4MG, FENTANYL 50MCG IV Counseled pt/family regarding: lab results, diagnosis, need for follow-up - Departure Departure Disposition: Home Clinical Impression: ABDOMINAL VENTRAL HERNIA Condition: Stable Critical Care Time: No Referrals: AMOR RIVERA [Primary Care Provider] - Additional Instructions: CALL THE TRANSPLANT SERVICE TOMORROW TO SCHEDULE AN EARLIER APPOINTMENT FOR EVALUATION OF ABDOMINAL HERNIA. TAKE COPY OF CT DISC TO APPOINTMENT.
[2018-10-26] MEDS ORDERED: Sodium Chloride 0.9% 1000 ML 1,000 ML IV SCH (17:15)
[2018-10-26] MEDS ORDERED: Zofran 4 MG/2 ML VIAL ONE (17:49)
[2018-10-26] MEDS ORDERED: Sodium Chloride 0.9% 1000 ML 1,000 ML ONE (17:49)
[2018-10-26] MEDS ORDERED: SUBLIMAZE 100 MCG/2 ML ONE (17:49)
[2018-10-26 18:11] LABS: BASOPHIL % 0.4 % (0.0-0.4); Basophil (Absolute #) 0.03 (0-0.4); Eosinophil % 1.6 % (0.00-5.0); Eosinophil (Absolute #) 0.13 (0-0.5); Granulocyte Absolute (ANC) 5.89 (1.4-6.9); Granulocytes % 74.1 % (36.0-66.0); Hematocrit 38.4 % (42-50); Hemoglobin 13.2 gm/dl (12.5-18.0); Lymphocyte (Absolute #) 1.16 (1.0-4.6); Lymphocytes % 14.6 % (24.0-44.0); Mean Cell Volume 86.1 fl (78-100); Mean Corpuscular Hemoglobin 29.6 pg (26-32); Mean Corpuscular Hgb Concent. 34.4 g/dl (32-36); Mean Platelet Volume 10.1 fl (6-9.5); Monocyte (Absolute #) 0.74 (0.0-1.3); Monocytes % 9.3 % (0.0-12.0); Platelet Count 169 K/mm3 (150-450); Red Blood Count 4.46 M/mm3 (4.1-5.6); Red Cell Distribution Width 13.6 % (11.5-14.0)
[2018-10-26 18:14] VITALS: BP 134/79
[2018-10-26 18:26] LABS: ANION GAP 10.4 MEQ/L (5-15); Calcium 9.1 mg/dL (8.4-10.2); Creatinine 1 1.53 mg/dL (0.66-1.25)
[2018-10-26 19:08] VITALS: PULSE 72
[2018-10-26 19:53] VITALS: O2SAT 97
--- NOTE | 2018-10-27 08:49 | XRAY ---
Indication: Upper abdomen knot and pain 1 month. Liver transplant January 2018. Multiple contiguous axial images obtained through the abdomen and pelvis without contrast as ordered. Comparison: None Lung bases demonstrates mild bilateral dependent atelectasis. No infiltrate or effusion. Heart is not enlarged. Right upper quadrant abdominal wall demonstrates soft tissue changes related to patient's surgery. Left lower quadrant abdomen demonstrates a well-circumscribed subcutaneous 2 cm cystic mass. No other focal solid/cystic abdominal wall mass, ventral hernia, or fluid collection. Noncontrasted stomach and bowel loops appear nonobstructed. Normal appendix. Mild diffuse scattered colonic fecal debris throughout and mild sigmoid diverticulosis. No free fluid/air. Left kidney demonstrates 2 cysts, largest 3.3 cm mid pole. Also nonobstructing left renal micro-calculus. Previous cholecystectomy. Remaining liver, pancreas, spleen, adrenal glands, kidneys, ureters, and bladder appear unremarkable for noncontrast exam. Mild scattered aortoiliac calcifications without AAA. Osseous structures demonstrates mild degenerative changes throughout the thoracolumbar spine. Moderate degenerative changes of both hips, right greater than left. Also bilateral L5 spondylolysis with 2-3 mm spondylolisthesis. Impression: 1. Right upper quadrant abdominal wall postsurgical changes and left lower quadrant benign-appearing subcutaneous cystic mass. 2. Diffuse fecal stasis without obstruction and sigmoid diverticulosis. 3. Left renal cysts and nonobstructing micro-calculus. 4. Multilevel degenerative spondylosis and L5 spondylolysis without spondylolisthesis. 5. Remaining CT abdomen/pelvis without contrast exam is negative. CT DI 23.68
== END 2018-10-26 20:07 | disposition home or self-care (01) ==
LOC: ED 16:15
DX: K43.9 Ventral hernia without obstruction or gangrene (principal); Z86.14 Personal history of Methicillin resistant Staphylococcus aureus infection; Z85.05 Personal history of malignant neoplasm of liver
CPT/HCPCS: 36000; 36415; 74176; 80048; 85025; 96360; 96374; 96375; 99284; J2405; J3010

== ENCOUNTER 2019-02-20 19:08 | Emergency (ER) | payer OTHER ==
--- NOTE | 2019-02-20 19:27 | ERPHSYRPT ---
- History of Present Illness Time Seen by Provider: 02/20/19 19:27 Historian: patient, family Exam Limitations: no limitations Physician History: 53 y/o diabetic male presents with tender, enlarging left sided abd wall hernia from a prior chevron incision for a liver transplant. pt was scheduled to see surgeon about incisional hernia repair. however, they rescheduled. yesterday, pt was extending his arms cranially while lifting something and felt a pop, pulling sensation and pain. pt pain persisted and his hernia was noted to have enlarged. he was told to come into ED to obtain a ct scan abd/pelvis. pt has not had any n/v/d. Timing/Duration: yesterday Activities at Onset: activity Quality: sharpness (superficial) Abdominal Pain Onset Location: LUQ Pain Radiation: no radiation Severity of Pain-Max: moderate Severity of Pain-Current: mild Associated Symptoms: No diarrhea, No headache, No loss of appetite, No nausea, No vomiting Previous symptoms: no prior history Allergies/Adverse Reactions: No Known Drug Allergies Allergy (Verified 02/20/19 19:37) Home Medications: Glyburide,Micronized [Glynase] 5 mg PO BID 06/01/13 [History] Metformin HCl 500 mg [Glucophage 500 MG] 1,000 mg PO BID 06/01/13 [History ] Amlodipine Besylate 10 mg [Norvasc 10 MG] 10 mg PO DAILY 01/28/17 [History] Magnesium Oxide/Magnesium [ue-Ddrk-Gwkbsiu Tablet] 133 mg PO DAILY 10/26/18 [ History] Metoprolol Succinate [Toprol Xl] 25 mg PO DAILY 10/26/18 [History] Mycophenolate Mofetil 500 mg PO DAILY 10/26/18 [History] Oxycodone HCl 10 mg PO DAILY 10/26/18 [History] Tacrolimus 1 mg PO DAILY 10/26/18 [History] Hx Tetanus, Diphtheria Vaccination/Date Given: Yes Hx Influenza Vaccination/Date Given: Yes Hx Pneumococcal Vaccination/Date Given: Yes - Review of Systems Constitutional: No Symptoms Eyes: No Symptoms Ears, Nose, & Throat: No Symptoms Respiratory: No Symptoms Cardiac: No Symptoms Abdominal/Gastrointestinal: Abdominal Pain (in area of left upper quad incsional hernia), No Nausea, No Vomiting, No Diarrhea Genitourinary Symptoms: No Symptoms Musculoskeletal: No Symptoms Skin: No Symptoms Neurological: No Symptoms Psychological: No Symptoms Endocrine: No Symptoms Hematologic/Lymphatic: No Symptoms Immunological/Allergic: No Symptoms All Other Systems: Reviewed and Negative - Past Medical History Pertinent Past Medical History: Yes Neurological History: No Pertinent History ENT History: No Pertinent History Cardiac History: Hypertension Respiratory History: No Pertinent History Endocrine Medical History: Diabetes Type II Musculoskeletal History: Degenerative Disk Disease, Fibromyalgia, Other GI Medical History: Hepatitis, Liver Cancer History: No Pertinent History Psycho-Social History: No Pertinent History Male Reproductive Disorders: No Pertinent History Other Medical History: Cracked disc and extreme back pain. 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 liver transplant - Social History Smoking Status: Current every day smoker How long have you smoked: years Exposure to second hand smoke: Yes Drug Use: none Patient Lives Alone: No - Nursing Vital Signs Nursing Vital Signs: Initial Vital Signs Temperature 97.9 F 02/20/19 19:25 Pulse Rate 82 02/20/19 19:25 Respiratory Rate 19 02/20/19 19:25 Blood Pressure 152/82 02/20/19 19:25 O2 Sat by Pulse Oximetry 97 02/20/19 19:25 Pain Scale Pain Intensity 10 - Physical Exam General Appearance: no apparent distress, alert, anxiety Eye Exam: PERRL/EOMI, eyes nml inspection Ears, Nose, Throat Exam: normal ENT inspection, moist mucous membranes Neck Exam: normal inspection, non-tender, supple, full range of motion Respiratory Exam: normal breath sounds, lungs clear, No chest tenderness, No respiratory distress Cardiovascular Exam: regular rate/rhythm, normal heart sounds, normal peripheral pulses Gastrointestinal/Abdomen Exam: soft, normal bowel sounds, tenderness (at reducible incisional hernia site), No guarding, No pulsatile mass, No rebound Back Exam: normal inspection, normal range of motion, No CVA tenderness Extremity Exam: normal inspection, normal range of motion, pelvis stable Neurologic Exam: alert, oriented x 3, cooperative, community development director II-XII nml as tested Skin Exam: normal color, warm, dry Lymphatic Exam: No adenopathy SpO2 Interpretation: normal O2 Delivery: Room Air - Course Nursing assessment & vital signs reviewed: Yes Ordered Tests: Active Orders 24 hr Category Date Time Status ABDOMEN AND PELVIS W/0 CONTRAS [CT] Stat Exams 02/20/19 19:49 Taken Medication Summary Discontinued Medications Generic Name Dose Route Start Last Admin Trade Name Freq PRN Reason Stop Dose Admin Hydromorphone HCl 1 mg 02/20/19 20:43 Hydromorphone 1 Mg/Ml Ampule IM 02/20/19 20:44 STAT ONE Ondansetron HCl 4 mg 02/20/19 20:43 Zofran Odt 4 Mg PO 02/20/19 20:44 STAT ONE - Progress Progress: improved, pain not gone completely, re-examined Progress Note: 02/20/19 20:57 ct abd/pelvis-no acute process. Counseled pt/family regarding: need for follow-up, rad results - Departure Departure Disposition: Home Clinical Impression: Incisional hernia following transplant Condition: Stable Critical Care Time: No Referrals: AMOR RIVERA [Primary Care Provider] - Additional Instructions: drink plenty of fluids. follow up with your surgeon for further management Prescriptions: Oxycodone HCl/Acetaminophen [Percocet 5-325 mg Tablet] 1 each PO Q8H PRN PRN #6 tablet MDD 3 PRN Reason: Pain
[2019-02-20] MEDS ORDERED: Hydromorphone 1 mg/ml Ampule IM ONE (20:43)
[2019-02-20] MEDS ORDERED: ZOFRAN ODT 4 MG PO ONE (20:43)
[2019-02-20 21:04] VITALS: BP 124/83; PULSE 81; O2SAT 99
[2019-02-20] MEDS ORDERED: PERCOCET TABLET 5/325MG PO STA (21:08)
[2019-02-20] MEDS ORDERED: ZOFRAN ODT 4 MG ONE (21:21)
[2019-02-20] MEDS ORDERED: Hydromorphone 1 mg/ml Ampule ONE (21:21)
[2019-02-20] MEDS ORDERED: PERCOCET TABLET 5/325MG ONE (21:28)
--- NOTE | 2019-02-21 09:30 | XRAY ---
Indication: Abdomen pain. Liver transplant January 2018. Multiple contiguous axial images obtained through the abdomen and pelvis without contrast as ordered. Comparison: October 26, 2018. Lung bases again demonstrates mild bilateral dependent atelectasis without infiltrate or effusion. Heart is not enlarged. Stomach is distended with food/fluid. Noncontrasted stomach and bowel loops appear nonobstructed. Normal air-filled appendix. Stable mild scattered fecal debris throughout the colon and mild sigmoid diverticulosis. No free fluid/air. Stable right upper quadrant surgical clips presumed related to liver transplant, cholecystectomy, left renal cysts, and nonobstructing left renal micro-calculus. Remaining liver, pancreas, spleen, adrenal glands, kidneys, ureters, and bladder appear unremarkable for noncontrast exam. There remains mild scattered aortoiliac calcifications without AAA. Osseous structures again demonstrate mild degenerative changes throughout the thoracolumbar spine, bilateral L5 spondylolysis with minimal grade 1 spondylolisthesis, and moderate degenerative changes of both hips. Left lower quadrant abdominal wall demonstrates stable 2 cm cystic mass. Impression: 1. Again mild fecal stasis without obstruction and sigmoid diverticulosis. 2. Stable left renal cysts and nonobstructing left renal micro-calculus. 3. Stable bony degenerative changes and L5 spondylolysis with grade [address] abdomen/pelvis without contrast exam is negative. CTDI 15.98
== END 2019-02-20 21:46 ==
LOC: ED 19:08
DX: K43.2 Incisional hernia without obstruction or gangrene (principal); Z94.4 Liver transplant status
CPT/HCPCS: 74176; 96372; 99284; J1170; Q0162; A9270-GY

== ENCOUNTER 2021-03-11 17:07 | Emergency (ER) | payer MEDICARE, SELFPAY ==
[2021-03-11] MEDS: OXYCODONE-ACETAMINOPHEN 10-325 PO STA (17:35)
[2021-03-11] MEDS ORDERED: OXYCODONE-ACETAMINOPHEN 10-325 ONE (17:39)
--- NOTE | 2021-03-11 18:27 | ERPHSYRPT ---
- History of Present Illness Time Seen by Provider: 03/11/21 18:21 Source: patient, family Patient Subjective Stated Complaint: Fell asleep in his chair at unknown time yesterday night, woke up at 0430 this morning at which time he had a headache, left ear ringing and blood in his ear. He cleaned his ear and then fell back to sleep until kids found him at approx 1500 after he had woken up and found a laceration to the left side of his head. Triage Nursing Assessment: Patient ambulated per self to room. A&Ox3. Skin is warm, pink and dry. Laceration to left side of head. Pt complaining of headache, holding onto his head. 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 Patient reports he fell asleep last night on recliner, woke up with ringing in the ear and some blood, cleaned and went back to sleep around 4:30 AM again. He denies any fall or trauma. Complaining of dull aching headache especially on the area of laceration with palpation. He slept all day today until 3 PM when his kids happened to check on him and he was still sleeping. Denies any neck pain, numbness tingling or focal weakness. Patient absolutely denies fall trauma or assault. Occurred: yesterday Severity: moderate Head Injury Location: parietal Method of Injury: unknown Associated Symptoms: headaches Allergies/Adverse Reactions: No Known Drug Allergies Allergy (Verified 02/20/19 19:37) Home Medications: Glyburide,Micronized [Glynase] 5 mg PO BID 06/01/13 [History] Metformin HCl 500 mg [Glucophage 500 MG] 1,000 mg PO BID 06/01/13 [History] Amlodipine Besylate 10 mg [Norvasc 10 MG] 10 mg PO DAILY 01/28/17 [History] Magnesium Oxide/Magnesium [ak-Auqz-Ywkpuye Tablet] 133 mg PO DAILY 10/26/18 [History] Metoprolol Succinate [Toprol Xl] 25 mg PO DAILY 10/26/18 [History] Tacrolimus 1 mg PO DAILY 10/26/18 [History] mycophenolate mofetiL [Mycophenolate Mofetil] 500 mg PO DAILY 10/26/18 [History] Aspirin 81 gm Chew [Baby Aspirin 81 mg Chew] 1 tab PO DAILY 03/11/21 [History] Multivit with Minerals/Lutein [Cerovite Senior Tablet] 1 tab PO DAILY 03/11/21 [History] Hx Tetanus, Diphtheria Vaccination/Date Given: Yes Hx Influenza Vaccination/Date Given: Yes Hx Pneumococcal Vaccination/Date Given: (2019) Immunizations Up to Date: Yes Travel Risk - International Travel Have you traveled outside of the country in past 3 weeks: No - Coronavirus Screening Are you exhibiting any of the following symptoms?: No Close contact with a COVID-19 positive Pt in past 14-21 Days: No - Vaccine Status Have you recieved a Covid-19 vaccination: Yes 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 - Vaccination Dates Date of 2cond Vaccination (if applicable): july 2020 - Review of Systems Constitutional: No Symptoms Eyes: No Symptoms Ears, Nose, & Throat: Ear Pain Respiratory: No Symptoms Cardiac: No Symptoms Abdominal/Gastrointestinal: No Symptoms Genitourinary Symptoms: No Symptoms Musculoskeletal: No Symptoms Skin: Skin Lesions Neurological: Headache Endocrine: No Symptoms Hematologic/Lymphatic: No Symptoms Immunological/Allergic: No Symptoms - Past Medical History Pertinent Past Medical History: Yes Neurological History: No Pertinent History ENT History: No Pertinent History Cardiac History: Hypertension Respiratory History: No Pertinent History Endocrine Medical History: Diabetes Type II, Liver Disease Musculoskeletal History: Degenerative Disk Disease, Fibromyalgia, Other GI Medical History: Hernia, Liver Cancer History: No Pertinent History Psycho-Social History: No Pertinent History Male Reproductive Disorders: No Pertinent History Other Medical History: Cracked disc and extreme back pain. 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 liver transplant - Social History Smoking Status: Current every day smoker How long have you smoked: years Exposure to second hand smoke: Yes Drug Use: none Patient Lives Alone: No - Nursing Vital Signs Nursing Vital Signs: Initial Vital Signs Temperature 98.8 F 03/11/21 17:17 Pulse Rate 89 03/11/21 17:17 Respiratory Rate 18 03/11/21 17:17 Blood Pressure 158/92 03/11/21 17:17 O2 Sat by Pulse Oximetry 100 03/11/21 17:17 Pain Scale Pain Intensity 8 - Clementina Coma Score Best Eye Response (Clementina): (4) open spontaneously Best Verbal Response (Henderson): (5) oriented Best Motor Response (Clementina): (6) obeys commands Clementina Total: 15 - Physical Exam General Appearance: no apparent distress, alert Head Injury: lacerations (4 cm area of superficial laceration partially closed in the left posterior parietal area with some swelling and tenderness around. No step in deformity. No active bleeding spurting or losing.), swelling, tenderness Eye Exam: bilateral eye: normal inspection, PERRL, EOMI ENT Exam: airway nml, other (Blood in external canal and on the drum externally but no behind drum.) Neck Exam: supple, trachea midline, normal alignment, c-collar in place Cardiovascular/Respiratory Exam: chest non-tender, normal breath sounds, regular rate/rhythm Gastrointestinal/Abdominal Exam: soft, non tender Extremity Exam: non-tender, normal range of motion Mental Status Exam: alert, oriented x 3, cooperative highway design engineer Exam: normal hearing, normal speech, PERRL, No facial asymmetry Coordination/Gait Exam: normal finger to nose Motor/Sensory Exam: no motor deficit, no sensory deficit Skin Exam: normal color SpO2 Interpretation: normal SpO2: 100 O2 Delivery: Room Air Ordered Tests: Active Orders 24 hr Category Date Time Status CERVICAL SPINE WO CONTRAST [CT] Stat Exams 03/11/21 17:58 Taken HEAD WITHOUT CONTRAST [CT] Stat Exams 03/11/21 17:15 Taken Alcohol [ETHYL ALCOHOL] Stat Lab 03/11/21 18:41 Ordered CBC W DIFF Stat Lab 03/11/21 18:25 Completed CMP Stat Lab 03/11/21 18:25 Received ETHYL ALCOHOL Stat Lab 03/11/21 18:25 Received Lactic Acid Stat Lab 03/11/21 18:21 Ordered PROTIME WITH INR Stat Lab 03/11/21 18:25 Completed UA W/RFX UR CULTURE Stat Lab 03/11/21 18:21 Ordered Urine Triage Profile Stat Lab 03/11/21 18:21 Ordered Medication Summary Discontinued Medications Generic Name Dose Route Start Last Admin Trade Name Freq PRN Reason Stop Dose Admin Oxycodone/Acetaminophen Confirm 03/11/21 17:39 Oxycodone / Apap 10/325 Mg 1 Tablet Administered 03/11/21 17:40 Dose 1 tab .ROUTE .STK-MED ONE Lab/Rad Data: Laboratory Result Diagrams 03/11/21 18:25 Laboratory Results 03/11/21 03/11/21 Range/Units 18:25 18:25 WBC 10.1 (4.0-10.5) K/mm3 RBC 4.42 (4.1-5.6) M/mm3 Hgb 13.3 (12.5-18.0) gm/dl Hct 40.6 L (42-50) % MCV 91.9 (78-100) fl MCH 30.1 (26-32) pg MCHC 32.8 (32-36) g/dl RDW 13.0 (11.5-14.0) % Plt Count 213 (150-450) K/mm3 MPV 9.5 (7.5-11.0) fl Gran % 84.3 H (36.0-66.0) % Eos # (Auto) 0.02 (0-0.5) Absolute Lymphs (auto) 0.95 L (1.0-4.6) Absolute Monos (auto) 0.60 (0.0-1.3) Lymphocytes % 9.4 L (24.0-44.0) % Monocytes % 5.9 (0.0-12.0) % Eosinophils % 0.2 (0.00-5.0) % Basophils % 0.2 (0.0-0.4) % Absolute Granulocytes 8.53 H (1.4-6.9) Basophils # 0.02 (0-0.4) PT 11.9 (9.4-12.5) SECONDS INR 1.01 (0.8-3.0) - Progress Progress: unchanged Progress Note: 03/11/21 18:55 55 years old is evaluated for left sided scalp laceration sometimes last night and unsure about how this happened. Patient has grossly nonfocal neuro exam. CT head showed nondepressed left parietal skull fracture with right intraparenchymal parietal 1.4 cm hemorrhage and some petechial lesion/contusion on the left. CT cervical spine is negative for any acute fracture or subluxation. transfer center is called and patient is accepted by Dr. Yana Low trauma surgeon at [facility]. Plan discussed with patient and family and is being transferred there. Discussed with Dr.: Other Counseled pt/family regarding: diagnosis, rad results - Departure Departure Disposition: Transfer Clinical Impression: Intracranial hemorrhage, Skull fracture, Scalp laceration Condition: Serious Critical Care Time: Yes Critical Care Time(excluding separately billable procedures): Critical 30-74 mins Referrals: AMOR RIVERA [Primary Care Provider] - Follow up/PCP as directed
[2021-03-11 18:32] LABS: Absolute Neutrophil Ct (ANC) 8.53 (1.4-6.9); BASOPHIL % 0.2 % (0.0-0.4); Basophil (Absolute #) 0.02 (0-0.4); Eosinophil % 0.2 % (0.00-5.0); Eosinophil (Absolute #) 0.02 (0-0.5); Hematocrit 40.6 % (42-50); Hemoglobin 13.3 gm/dl (12.5-18.0); Lymphocyte (Absolute #) 0.95 (1.0-4.6); Lymphocytes % 9.4 % (24.0-44.0); Mean Cell Volume 91.9 fl (78-100); Mean Corpuscular Hemoglobin 30.1 pg (26-32); Mean Corpuscular Hgb Concent. 32.8 g/dl (32-36); Mean Platelet Volume 9.5 fl (7.5-11.0); Monocytes % 5.9 % (0.0-12.0); Neutrophil % 84.3 % (36.0-66.0); Platelet Count 213 K/mm3 (150-450); Red Blood Count 4.42 M/mm3 (4.1-5.6); White Blood Count 10.1 K/mm3 (4.0-10.5)
[2021-03-11 18:39] LABS: INR 1.01 (0.8-3.0); PROTIME 11.9 SECONDS (9.4-12.5)
[2021-03-11 18:44] LABS: ALBUMIN 4.2 g/dL (3.5-5.0); ALKALINE PHOSPHATASE 117 U/L (38-126); ANION GAP 10.7 MEQ/L (5-15); BLOOD UREA NITROGEN 9 mg/dL (9-20); CHLORIDE 101 mmol/L (98-107); Carbon Dioxide 28 mmol/L (22-30); EST GLOMERULAR FILTRATION RATE > 60.0 ML/MIN; ETHYL ALCOHOL < 10 mg/dL (0-10); Glucose 114 mg/dL (74-106); Potassium 3.8 mmol/L (3.5-5.1); SGOT/AST 26 U/L (17-59); SGPT/ALT 33 U/L (0-50); SODIUM 136 mmol/L (137-145); Total Protein 6.6 g/dL (6.3-8.2)
[2021-03-11] MEDS ORDERED: Sodium Chloride 0.9% 1000 ML 1,000 ML ONE (19:03)
[2021-03-11] MEDS: Sodium Chloride 0.9% 1000 ML 1,000 ML IV SCH (19:07)
[2021-03-11 19:53] VITALS: O2SAT 99
[2021-03-11 20:12] VITALS: BP 145/89; PULSE 89
--- NOTE | 2021-03-12 09:02 | XRAY ---
Indication: Left head injury. Headache and bleeding left ear. Multiple contiguous axial images obtained through the head without contrast. Comparison: July 20, 2010. There is age-appropriate global atrophy and minimal periventricular degenerative micro-ischemia. Right temporal lobe demonstrates new 1.4 cm subcortical acute parenchymal hemorrhage/contusion. Just superiorly is a smaller focus of right parietal subcortical acute petechial parenchymal hemorrhage/contusion. No mass effect or midline shifting. Fourth ventricle is midline without hydrocephalus. Bony calvarium demonstrates new nondepressed left temporoparietal fracture. Also partial opacification of the left mastoid air cells presumed posttraumatic. Right mastoid air cells are clear. Minimal mucosal thickening seen of both maxillary and lesser degree both sphenoid sinuses. Impression: 1. New nondepressed left temporoparietal fracture with right temporoparietal acute parenchymal hemorrhage/contusion as detailed. 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 No mass effect/midline shift dating. 2. New partial opacification left mastoid air cells presumed posttraumatic. 3. Incidental minimal paranasal sinus disease. 4. Atrophy and degenerative micro-ischemia within normal limits for patient's age. Comment: Telephone report given to Dr. Reyes at 1755 hrs on March 11, 2021.
--- NOTE | 2021-03-12 09:04 | XRAY ---
Indication: Pain following head injury. Multiple contiguous axial images obtained through the cervical spine. Sagittal and coronal reformatted images obtained. Comparison: None Axial images negative for acute fracture or spinal canal stenosis. C6 segment demonstrates a 4 mm cyst. Minimal multilevel bilateral degenerative facet arthropathy and mild C2-C3 anterior endplate spurring. Sagittal and coronal reformatted images demonstrates normal alignment with vertebral body heights/disc spaces maintained. No acute compression fracture, subluxation, or jumped facet. Normal appearing craniocervical junction. Visualized noncontrasted soft tissues demonstrates minimal bilateral carotid calcifications and small right lung apical calcified granuloma. Impression: 1. Negative acute fracture/subluxation. 2. Incidental multilevel degenerative changes, tiny C6 bone cyst, minimal carotid calcifications, and small right lung calcified granuloma.
== END 2021-03-11 20:47 | disposition short-term general hospital (02) ==
LOC: ED 17:07
DX: S01.01XA Laceration without foreign body of scalp, initial encounter (principal); S02.0XXA Fracture of vault of skull, initial encounter for closed fracture; S06.309A Unspecified focal traumatic brain injury with loss of consciousness of unspecified duration, initial encounter; Z85.05 Personal history of malignant neoplasm of liver; Z94.4 Liver transplant status; I10 Essential (primary) hypertension; E11.8 Type 2 diabetes mellitus with unspecified complications; Z79.84 Long term (current) use of oral hypoglycemic drugs; Z72.0 Tobacco use
CPT/HCPCS: 36000; 36415; 70450; 72125; 80053; 85025; 85610; 96360; 99285; 99291; G0480; 80307; A9270-GY

== ENCOUNTER 2021-04-14 20:48 | Emergency (ER) | payer MEDICARE ==
[2021-04-14 22:01] LABS: Absolute Neutrophil Ct (ANC) 7.34 (1.4-6.9); Basophil (Absolute #) 0.02 (0-0.4); Eosinophil % 0.9 % (0.00-5.0); Eosinophil (Absolute #) 0.08 (0-0.5); Hematocrit 39.7 % (42-50); Hemoglobin 13.1 gm/dl (12.5-18.0); Lymphocyte (Absolute #) 0.87 (1.0-4.6); Mean Corpuscular Hemoglobin 29.7 pg (26-32); Mean Platelet Volume 9.2 fl (7.5-11.0); Monocyte (Absolute #) 0.43 (0.0-1.3); Monocytes % 4.9 % (0.0-12.0); Platelet Count 222 K/mm3 (150-450); Red Blood Count 4.41 M/mm3 (4.1-5.6); White Blood Count 8.7 K/mm3 (4.0-10.5)
[2021-04-14 22:08] LABS: ALBUMIN 4.8 g/dL (3.5-5.0); ANION GAP 12.7 MEQ/L (5-15); BILIRUBIN,TOTAL 0.4 mg/dL (0.2-1.3); Calcium 9.3 mg/dL (8.4-10.2); Creatinine 1 1.44 mg/dL (0.66-1.25); EST GLOMERULAR FILTRATION RATE 54.3 ML/MIN; Potassium 3.8 mmol/L (3.5-5.1); Total Protein 7.7 g/dL (6.3-8.2)
[2021-04-14] MEDS ORDERED: Sodium Chloride 0.9% 1000 ML 1,000 ML IV STA (23:00)
[2021-04-14] MEDS ORDERED: Sodium Chloride 0.9% 1000 ML 1,000 ML ONE (23:09)
--- NOTE | 2021-04-14 23:21 | ERPHSYRPT ---
- History of Present Illness Time Seen by Provider: 04/14/21 21:25 Source: patient Exam Limitations: no limitations Patient Subjective Stated Complaint: Patient unable to state exactly what happened to bring him to the ED this evening. He states, "ask my . I don't remeber falling but I guess I did." Patient is c/o left shoulder and neck pain and right elbow pain. states patient was exiting his "man cave" when she heard a thud and went to him. indicates patient was passed out on the floor. Her and her son assisted him to sit up and patient "was in a fog" then his eyes rolled back in his head and he passed out again. Patient's left hand then clenched very tight. Patient then opened his eyes again but would not respond to and child when yelling his name so they called the ambulance. The patient became alert before the ambulance arrived and asked "what happened?" indicates that patient was incontinent of BM during these epidsodes and had to be assisted to be cleaned up. Patient fell one more time while standing to pull up pants after being cleaned up and went face first into the floor and "busted his nose." Triage Nursing Assessment: Patient brought back to ED by W/C. He is currently alert and oriented and answering questions appropriately but states he doesn't remember the fall. Patient MIRELES WNL at this time. He was able to transfer self from W/C to bed without difficulties. Physician History: Patient is a 55-year-old male with a history of liver cancer status post transplant presents to our ED with complaint plaints of syncope. Patient states he was sitting down. Patient got up to walk and became lightheaded and fell to the ground. Family states that patient was unconscious. Patient awoke they stood him up patient was found to be incontinent. Patient then passed out a second time. Patient has poor recollection of the occurrences. Patient complains of left shoulder pain. Neck pain right elbow pain. Patient otherwise feels well at this time. Symptoms are mild to moderate in intensity. Movement and palpation reproduce symptoms. Patient otherwise feels well. He voices no other complaints or concerns at this time. Timing/Duration: today Severity: moderate Modifying Factors: Improves With: nothing Associated Symptoms: No nausea, No abdominal pain, No shortness of breath, No diaphoresis, No cough, No fever, No weakness Allergies/Adverse Reactions: No Known Drug Allergies Allergy (Verified 04/14/21 21:07) Home Medications: Glyburide,Micronized [Glynase] 5 mg PO BID 06/01/13 [History] Metformin HCl 500 mg [Glucophage 500 MG] 1,000 mg PO BID 06/01/13 [History] Amlodipine Besylate 10 mg [Norvasc 10 MG] 10 mg PO DAILY 01/28/17 [History] Magnesium Oxide/Magnesium [cs-[id number]-[id number] Tablet] 133 mg PO DAILY 10/26/18 [History] Metoprolol Succinate [Toprol Xl] 25 mg PO DAILY 10/26/18 [History] Tacrolimus 1 mg PO DAILY 10/26/18 [History] mycophenolate mofetiL [Mycophenolate Mofetil] 500 mg PO DAILY 10/26/18 [History] Aspirin 81 gm Chew [Baby Aspirin 81 mg Chew] 1 tab PO DAILY 03/11/21 [History] Multivit with Minerals/Lutein [Cerovite Senior Tablet] 1 tab PO DAILY 03/11/21 [History] Hx Tetanus, Diphtheria Vaccination/Date Given: Yes Hx Influenza Vaccination/Date Given: Yes Hx Pneumococcal Vaccination/Date Given: (2019) Immunizations Up to Date: Yes Travel Risk - International Travel Have you traveled outside of the country in past 3 weeks: No - Coronavirus Screening Are you exhibiting any of the following symptoms?: No Close contact with a COVID-19 positive Pt in past 14-21 Days: No - Vaccine Status Have you recieved a Covid-19 vaccination: Yes Certified Coding Specialist: Moderna - Vaccination Dates Date of 2cond Vaccination (if applicable): july 2020 - Review of Systems Constitutional: No Symptoms, No Fever, No Chills Eyes: No Symptoms Ears, Nose, & Throat: No Symptoms Respiratory: No Symptoms, No Cough, No Dyspnea Cardiac: No Symptoms, No Chest Pain, No Edema, No Syncope Abdominal/Gastrointestinal: No Symptoms, No Abdominal Pain, No Nausea, No Vomiting, No Diarrhea Genitourinary Symptoms: No Symptoms, No Dysuria Musculoskeletal: No Symptoms, No Back Pain, No Neck Pain Skin: No Symptoms, No Rash Neurological: No Symptoms, No Dizziness, No Focal Weakness, No Sensory Changes Psychological: No Symptoms Endocrine: No Symptoms Hematologic/Lymphatic: No Symptoms Immunological/Allergic: No Symptoms All Other Systems: Reviewed and Negative - Past Medical History Pertinent Past Medical History: Yes Neurological History: Other ENT History: No Pertinent History Cardiac History: Hypertension Respiratory History: No Pertinent History Endocrine Medical History: Diabetes Type II, Liver Disease Musculoskeletal History: Degenerative Disk Disease, Fibromyalgia, Other GI Medical History: Hernia, Liver Cancer History: No Pertinent History Psycho-Social History: No Pertinent History Male Reproductive Disorders: No Pertinent History Other Medical History: Cracked disc and extreme back pain. 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, liver cancer, skull fracture/brain bleed - Past Surgical History Past Surgical History: Yes Neuro Surgical History: No Pertinent History Cardiac: No Pertinent History Respiratory: No Pertinent History Gastrointestinal: No Pertinent History Genitourinary: No Pertinent History Musculoskeletal: No Pertinent History Male Surgical History: Vasectomy, Other Other Surgical History: chemo beads to liver, liver transplant - Social History Smoking Status: Current every day smoker How long have you smoked: Years Exposure to second hand smoke: Yes Drug Use: none Patient Lives Alone: No - Nursing Vital Signs Nursing Vital Signs: Initial Vital Signs Temperature 98 F 04/14/21 21:12 Pulse Rate 78 04/14/21 21:12 Respiratory Rate 18 04/14/21 21:12 Blood Pressure 150/87 04/14/21 21:12 O2 Sat by Pulse Oximetry 100 04/14/21 21:12 Pain Scale Pain Intensity 4 - Physical Exam General Appearance: no apparent distress, alert Eye Exam: PERRL/EOMI, eyes nml inspection Ears, Nose, Throat Exam: normal ENT inspection, TMs normal, pharynx normal, moist mucous membranes Neck Exam: normal inspection, non-tender, supple, full range of motion Respiratory Exam: normal breath sounds, lungs clear, airway intact, No respiratory distress Cardiovascular Exam: regular rate/rhythm, normal heart sounds, normal peripheral pulses Gastrointestinal/Abdomen Exam: soft, normal bowel sounds, No tenderness, No mass Back Exam: normal inspection, normal range of motion, No CVA tenderness, No vertebral tenderness Extremity Exam: normal inspection, normal range of motion, pelvis stable Neurologic Exam: alert, oriented x 3, cooperative, normal mood/affect, nml cerebellar function, nml station & gait, sensation nml, No motor deficits Skin Exam: normal color, warm, dry, No rash Lymphatic Exam: No adenopathy SpO2 Interpretation: normal SpO2: 97 O2 Delivery: Room Air - Course Nursing assessment & vital signs reviewed: Yes EKG Interpreted by Me: RATE (72), Sinus Rhythm, NORMAL AXIS, NORMAL INTERVALS - Radiology Exams Shoulder X-ray Interpretation: Interpreted by me (No fractures. No dislocations. No soft tissue abnormalities. Osteopenia.) Elbow X-ray Interpretation: Interpreted by me (No fracture dislocations. No soft tissue abnormalities. Osteopenia) - CT Exams Head CT Interpretation: Tele-radiologist Report (Continued negative CT head compared to 04/06/2021.) Cervical Spine CT Interpretation: Tele-radiologist Report (Degenerative changes as described including a herniated disc in the right paracentral region at C5-C6 unchanged from prior exam. No cervical fractures.) Ordered Tests: Active Orders 24 hr Category Date Time Status EKG-ER Only STAT Care 04/15/21 01:13 Active IV Insertion STAT Care 04/14/21 21:36 Active Pulse Oximetry (ED) STAT Care 04/14/21 21:36 Active CERVICAL SPINE WO CONTRAST [CT] Stat Exams 04/14/21 23:21 Taken ELBOW (MINIMUM 3 VIEWS) Stat Exams 04/14/21 23:27 Taken HEAD WITHOUT CONTRAST [CT] Stat Exams 04/14/21 20:51 Taken SHOULDER Stat Exams 04/14/21 23:18 Taken CBC W DIFF Stat Lab 04/14/21 21:54 Completed CMP Stat Lab 04/14/21 21:54 Completed TROPONIN Q3H Lab 04/14/21 21:54 Completed TROPONIN Q3H Lab 04/15/21 00:57 Completed TROPONIN Q3H Lab 04/15/21 03:45 Ordered TROPONIN Q3H Lab 04/15/21 06:45 Ordered TROPONIN Q3H Lab 04/15/21 09:45 Ordered Medication Summary Discontinued Medications Generic Name Dose Route Start Last Admin Trade Name Freq PRN Reason Stop Dose Admin Sodium Chloride 1,000 mls @ 999 mls/hr 04/14/21 23:00 04/15/21 01:12 Sodium Chloride 0.9% 1000 Ml IV 04/15/21 00:00 Infused .Q1H1M STA Infusion Sodium Chloride Confirm 04/14/21 23:09 Sodium Chloride 0.9% 1000 Ml Administered 04/14/21 23:10 Dose 1,000 mls @ ud .ROUTE .[facility] Lab/Rad Data: Laboratory Result Diagrams 04/14/21 21:54 04/14/21 21:54 Laboratory Results 04/15/21 04/14/21 04/14/21 Range/Units 00:57 21:54 21:54 WBC (4.0-10.5) K/mm3 RBC (4.1-5.6) M/mm3 Hgb (12.5-18.0) gm/dl Hct (42-50) % MCV (78-100) fl MCH (26-32) pg MCHC (32-36) g/dl RDW (11.5-14.0) % Plt Count (150-450) K/mm3 MPV (7.5-11.0) fl Gran % (36.0-66.0) % Eos # (Auto) (0-0.5) Absolute Lymphs (auto) (1.0-4.6) Absolute Monos (auto) (0.0-1.3) Lymphocytes % (24.0-44.0) % Monocytes % (0.0-12.0) % Eosinophils % (0.00-5.0) % Basophils % (0.0-0.4) % Absolute Granulocytes (1.4-6.9) Basophils # (0-0.4) Sodium 138 (137-145) mmol/L Potassium 3.8 (3.5-5.1) mmol/L Chloride 101 (98-107) mmol/L Carbon Dioxide 28 (22-30) mmol/L Anion Gap 12.7 (5-15) MEQ/L BUN 18 (9-20) mg/dL Creatinine 1.44 H (0.66-1.25) mg/dL Estimated GFR 54.3 ML/MIN Glucose 89 (74-106) mg/dL Calcium 9.3 (8.4-10.2) mg/dL Total Bilirubin 0.40 (0.2-1.3) mg/dL AST 37 (17-59) U/L ALT 48 (0-50) U/L Alkaline Phosphatase 96 (38-126) U/L Troponin I < 0.012 < 0.012 (0.000-0.034) ng/mL Serum Total Protein 7.7 (6.3-8.2) g/dL Albumin 4.8 (3.5-5.0) g/dL 04/14/21 Range/Units 21:54 WBC 8.7 (4.0-10.5) K/mm3 RBC 4.41 (4.1-5.6) M/mm3 Hgb 13.1 (12.5-18.0) gm/dl Hct 39.7 L (42-50) % MCV 90.0 (78-100) fl MCH 29.7 (26-32) pg MCHC 33.0 (32-36) g/dl RDW 13.0 (11.5-14.0) % Plt Count 222 (150-450) K/mm3 MPV 9.2 (7.5-11.0) fl Gran % 84.0 H (36.0-66.0) % Eos # (Auto) 0.08 (0-0.5) Absolute Lymphs (auto) 0.87 L (1.0-4.6) Absolute Monos (auto) 0.43 (0.0-1.3) Lymphocytes % 10.0 L (24.0-44.0) % Monocytes % 4.9 (0.0-12.0) % Eosinophils % 0.9 (0.00-5.0) % Basophils % 0.2 (0.0-0.4) % Absolute Granulocytes 7.34 H (1.4-6.9) Basophils # 0.02 (0-0.4) Sodium (137-145) mmol/L Potassium (3.5-5.1) mmol/L Chloride (98-107) mmol/L Carbon Dioxide (22-30) mmol/L Anion Gap (5-15) MEQ/L BUN (9-20) mg/dL Creatinine (0.66-1.25) mg/dL Estimated GFR ML/MIN Glucose (74-106) mg/dL Calcium (8.4-10.2) mg/dL Total Bilirubin (0.2-1.3) mg/dL AST (17-59) U/L ALT (0-50) U/L Alkaline Phosphatase (38-126) U/L Troponin I (0.000-0.034) ng/mL Serum Total Protein (6.3-8.2) g/dL Albumin (3.5-5.0) g/dL - Progress Progress: improved Progress Note: Patient reassessed. He is asymptomatic. X-rays of shoulder elbow are negative for fracture dislocation. CT head negative. CT cervical spine negative. I nitial troponin negative. Second Trope pending. Repeat neuro exam within normal limits. Patient requesting discharge. Patient ambulated in his room. Patient states he feels perfectly fine. He is no longer lightheaded. IV fluids infused. Will discharge home as long as second troponin is negative. 04/15/21 00:47 Troponin #2 negative. EKG normal sinus rhythm. Will discharge home at this time. No indication for further work-up. Patient feels well. Vitals are stable. Patient's is waiting in the parking lot to take patient home. He voices no other complaints at this time. Patient agrees to follow-up with his primary care doctor within 48 hours for reevaluation. Portions of this note were created with voice recognition technology. There may be grammatical, spelling, punctuation or sound alike errors 04/15/21 01:27 Patient understands the importance of maintaining good hydration. Patient urine is yellow. Patient admits that he does not drink enough water. Patient will maintain good hydration and monitor urine color. Patient agrees to get repeat lab work to reassess kidney function. 04/15/21 01:33 Counseled pt/family regarding: lab results, diagnosis, need for follow-up, rad results - Departure Departure Disposition: Home Clinical Impression: Dehydration, Orthostatic syncope, Calcified granuloma of lung, Cervical spine arthritis, Broadbase disc herniation, Elevated serum creatinine Condition: Stable Critical Care Time: No Referrals: AMOR RIVERA [Primary Care Provider] - Follow up/PCP as directed Additional Instructions: You will require a follow-up and reevaluation of your kidney function. Your creatinine is slightly elevated. Your family doctor or primary care provider may follow-up on this within the next 2 weeks. Discharge/Care Plan CUEVASJOSE MORGAN was seen on 04/15/21 in the Emergency Room. The patient was counseled regarding Diagnosis,Lab results, Imaging studies, need for follow up and when to return to the Emergency Room. Prescriptions given: Discharge Note I have spoken with the patient and/or caregivers. I have explained the patient's condition, diagnosis and treatment plan based on the information available to me at this time. I have answered the patient's and/or caregiver's questions and addressed any concerns. The patient and/or caregivers have as good understanding of the patient's diagnosis, condition and treatment plan as can be expected at this point. The vital signs have been stable. The patient's condition is stable and appropriate for discharge from the emergency department. The patient will pursue further outpatient evaluation with the primary care physician or other designated or consulting physician as outlined in the discharge instructions. The patient and/or caregivers are agreeable to this plan of care and follow-up instructions have been explained in detail. The patient and/or caregivers have received these instruction. The patient/and or caregivers are aware that any significant change in condition or worsening of symptoms should prompt an immediate return to this or the closest emergency department or call 911.
[2021-04-15 01:31] VITALS: BP 131/86; PULSE 74
[2021-04-15 01:33] VITALS: O2SAT 97
--- NOTE | 2021-04-15 08:55 | XRAY ---
Indication: Acute mental status change. Stroke. Multiple contiguous has images obtained through the head without contrast. Comparison: April 06, 2021. Again age-appropriate global atrophy and minimal periventricular degenerative micro-ischemia. No acute intracranial hemorrhage, abnormal extra-axial fluid collection, or mass effect. Fourth ventricle is midline without hydrocephalus. Tran-white matter differentiation preserved. Bony calvarium intact. Visualized paranasal sinuses and mastoid air cells are clear. Impression: Atrophy and degenerative micro-ischemia within normal limits for patient's age. No new/acute intracranial abnormalities.
--- NOTE | 2021-04-15 09:08 | XRAY ---
Indication: Pain following fall. Comparison: None 3 view right elbow demonstrates mild osteopenia and tiny medial/lateral epicondyle spurring. No other bony, articular, or soft tissue abnormalities.
--- NOTE | 2021-04-15 09:08 | XRAY ---
Indication: Pain following fall. Comparison: None 3 view left shoulder demonstrate mild osteopenia and mild AC degenerative arthropathy. No other bony, articular, or soft tissue abnormalities.
--- NOTE | 2021-04-15 09:12 | XRAY ---
Indication: Pain following fall. Multiple contiguous axial images obtained through the cervical spine. Sagittal and coronal reformatted images obtained. Comparison: March 11, 2021. Axial images remain negative for acute fracture or spinal canal stenosis. Stable C2-C3 anterior endplate spurring, minimal multilevel bilateral degenerative facet arthropathy, and tiny C6 subcortical cyst. Sagittal and coronal reformatted images again demonstrate normal alignment with vertebral body heights/disc spaces maintained. No acute compression fracture, subluxation, or jumped facet. Normal appearing craniocervical junction. Visualized noncontrasted soft tissues again demonstrate minimal bilateral carotid calcifications and right lung apical calcified granuloma. Impression: 1. Continued negative for acute fracture/subluxation. 2. Again incidental multilevel degenerative changes, tiny C6 bone cyst, minimal chronic ossifications, and right lung calcified granuloma. Comment: Preliminary interpretation made by C. No critical discrepancy.
== END 2021-04-15 01:35 | disposition home or self-care (01) ==
LOC: ED 20:48
DX: I95.1 Orthostatic hypotension (principal); E86.0 Dehydration; J84.10 Pulmonary fibrosis, unspecified; M47.812 Spondylosis without myelopathy or radiculopathy, cervical region; M50.222 Other cervical disc displacement at C5-C6 level; R94.4 Abnormal results of kidney function studies; M25.512 Pain in left shoulder; M25.521 Pain in right elbow; W18.39XA Other fall on same level, initial encounter; I10 Essential (primary) hypertension; E11.9 Type 2 diabetes mellitus without complications; Z79.84 Long term (current) use of oral hypoglycemic drugs; Z85.05 Personal history of malignant neoplasm of liver; Z94.4 Liver transplant status; Z72.0 Tobacco use; Z79.899 Other long term (current) drug therapy
CPT/HCPCS: 36000; 36415; 70450; 72125; 73030; 73080; 80053; 84484; 85025; 93005; 94760; 99284